=== PATIENT | female | born 1995 | race Caucasian/White ===

== ENCOUNTER 2021-11-21 22:48 | Emergency (ER) | payer OTHER, MEDICAID ==
[~2021-11-21] VITALS: Ht 147.3 cm; Wt 52.2 kg
[2021-11-21] MEDS ORDERED: FLUOXETINE HCL60 MG PO (23:19)
[2021-11-21] MEDS ORDERED: XANAX 0.25 MG0.25 MG PO (23:19)
[2021-11-22 03:28] VITALS: BP 102/67
== END 2021-11-22 03:28 | disposition home or self-care (01) ==
LOC: M.ERS 22:48
DX: S93.601A Unspecified sprain of right foot, initial encounter (principal); F41.9 Anxiety disorder, unspecified; Z90.89 Acquired absence of other organs; Z79.899 Other long term (current) drug therapy; Z88.8 Allergy status to other drugs, medicaments and biological substances; Z88.6 Allergy status to analgesic agent; Z91.040 Latex allergy status; W19.XXXA Unspecified fall, initial encounter; Y93.89 Activity, other specified; Y92.89 Other specified places as the place of occurrence of the external cause; Y99.8 Other external cause status